=== PATIENT | male | born 1970 | race Caucasian/White ===

== ENCOUNTER 2016-07-13 13:23 | Emergency (ER) | payer OTHER ==
--- NOTE | 2016-07-13 13:31 | EDPHY ---
H & P Stated Complaint: cp/palpitations and dizzyness Time Seen by Provider: 07/13/16 13:31 Source: Patient - Personal History Current Tetanus/Diphtheria Vaccine: Yes - Medical/Surgical History Hx Asthma: No Hx Chronic Respiratory Disease: No Hx Diabetes: No Hx Cardiac Disease: No Hx Renal Disease: No Hx Cirrhosis: No Hx Alcoholism: No Hx HIV/AIDS: No Hx Splenectomy or Spleen Trauma: No Other PMH: palpitaitons/anxiety/ - Social History Smoking Status: Never smoked Constitutional: Initial Vital Signs Temperature (C) 36.7 C 07/13/16 13:27 Heart Rate 63 07/13/16 13:27 Respiratory Rate 18 07/13/16 13:27 Blood Pressure 146/89 H 07/13/16 13:27 O2 Sat (%) 96 07/13/16 13:27 O2 Delivery Mode Room Air Allergies/Adverse Reactions: tape Allergy (Uncoded 07/13/16 13:26) Home Medications: Medication Instructions Recorded Metoprolol Succinate 07/13/16 Sertraline HCl 07/13/16 Synthroid 07/13/16 Medical Decision Making - Diagnostics Imaging Results: Imaging Impressions Orbit X-Ray 07/13/16 00:00 Impression: 1. No metallic orbital foreign body. 2. Query hyperparathyroidism? Message was left for Dr. Greer at 5:27 PM Brain MRI 07/13/16 16:19 Impression: Tiny possible meningioma measuring about 7 mm without compression upon the underlying cerebral parenchyma overlying the posterior frontal lobe in a parasagittal location superiorly on the left. Otherwise, normal MRI of the brain without contrast. Findings discussed with Jose Greer MD at 18:09 hour, 07/13/2016. ED Course/Re-evaluation: CHIEF COMPLAINT: Chest pain, Dizziness HISTORY OF PRESENT ILLNESS: The patient is a 45-year-old male, sent here by his peanut blancher, Dr. Hollingsworth with complaints of chest pain and dizziness. The patient reports a dull, isolated, left sided chest pain that started around 11: 45 a.m. This pain lasted 10-15 minutes. Patient last experienced this chest pain about 4 days ago. He had associated dizziness today, which he states he usually experiences with palpitations. Patient notes he has recently been riding his bike more frequently. He does not usually feel symptoms during exertion. REVIEW OF SYSTEMS: A 10 point review of systems was performed and is negative with the exception of the elements mentioned in the history of present illness. PHYSICAL EXAM: HR, BP, O2 Sat, RR. Temp noted General Appearance: Alert, well hydrated, appropriate, and non-toxic appearing. Head: Atraumatic without scalp tenderness or obvious injury Eyes: Pupils equal, round, reactive to light and accommodation, EOMI, no trauma , no injection. Ears: Clear bilaterally, no perforation, normal landmarks Nose: Atraumatic, no rhinorrhea, clear. Throat: There is no erythema or exudates, no lesions, normal tonsils, mucus membranes moist. Neck: Supple, 2+ carotid upstroke, nontender, no lymphadenopathy. Respiratory: No retractions, no distress, no wheezes, and no accessory muscle use. Lungs are clear to auscultation bilaterally. Cardiovascular: Regular rate and rhythm, no murmurs, rubs, or gallops. Bilateral carotid, radial, dorsalis pedis, and posterior tibial pulses intact. Good capillary refill all extremities. Gastrointestinal: Abdomen is soft, nontender, non-distended, no masses, no rebound, no guarding, no peritoneal signs. Musculoskeletal: Normal active ROM of all extremities, atraumatic. Neurological: Alert, appropriate, and interactive. The patient has normal DTRs and non-focal cranial nerves, motor, sensory, and cerebellar exam. Skin: No rashes, good turgor, no nodules on palpation. Past medical history: Palpitations, Anxiety Past surgical history: Denies Social history: Lives in [place]. DIAGNOSTICS/PROCEDURES/CRITICAL CARE TIME: The 12 lead EKG was interpreted by myself. See hard copy and/or "tracemaster" electronic copy for interpretation: Sinus rhythm, borderline right axis deviation. I discussed CT imaging with the radiologist. See imaging section for full report. DIFFERENTIAL DIAGNOSIS: The differential diagnosis for the patient's chest pain included but was not limited to myocardial ischemia, pulmonary embolus, chest wall pain, pleural inflammation, and pulmonary infectious causes. MEDICAL DECISION MAKING: The patient was sent by Dr. Hollingsworth, Cardiology. Patient has documented runs of 2000 PVCs per hour with sustained runs of VT that he spontaneously comes out of. His ECHO was structurally normal. Patient is currently in sinus rhythm, no ischemia, rate 61. He is now complaining of intermittent chest pain and dizziness. Chest pain comes and goes. Patient seems more concerned with acute dizziness. His dizziness is persistent even with no evidence of rapid rhythm. Lab work is unremarkable. D-dimer and Troponin are normal. Electrolytes are normal. 4:10 p.m.: I spoke to Dr. Hollingsworth, he does not think his symptoms are cardiac related. I will refer the patient to a neurologist. 4:15 p.m.: I spoke to Dr. Duran, Neurology. He will see the patient and would like noncontrast head CT. CT shows 7mm meningioma that is not touching the brain, thus it is not causing his neurological symptoms. I discussed this finding with the patient. He will followup with the neurologist. - Data Points Laboratory Results: Laboratory Results 07/13/16 13:45 07/13/16 13:45 07/13/16 07/13/16 07/13/16 13:45 13:45 13:45 WBC 8.71 10^3/uL 10^3/uL (3.80-9.50) RBC 5.63 10^6/uL 10^6/uL (4.40-6.38) Hgb 15.2 g/dL g/dL (13.7-17.5) Hct 45.7 % % (40.0-51.0) MCV 81.2 fL L fL (81.5-99.8) MCH 27.0 pg L pg (27.9-34.1) MCHC 33.3 g/dL g/dL (32.4-36.7) RDW 13.9 % % (11.5-15.2) Plt Count 228 10^3/uL 10^3/uL (150-400) MPV 10.2 fL fL (8.7-11.7) Neut % (Auto) 57.9 % % (39.3-74.2) Lymph % (Auto) 29.5 % % (15.0-45.0) [place] % (Auto) 7.7 % % (4.5-13.0) Eos % (Auto) 3.1 % % (0.6-7.6) Baso % (Auto) 0.7 % % (0.3-1.7) Nucleat RBC Rel Count 0.0 % % (0.0-0.2) Absolute Neuts (auto) 5.04 10^3/uL 10^3/uL (1.70-6.50) Absolute Lymphs (auto) 2.57 10^3/uL 10^3/uL (1.00-3.00) Absolute Monos (auto) 0.67 10^3/uL 10^3/uL (0.30-0.80) Absolute Eos (auto) 0.27 10^3/uL 10^3/uL (0.03-0.40) Absolute Basos (auto) 0.06 10^3/uL 10^3/uL (0.02-0.10) Absolute Nucleated RBC 0.00 10^3/uL 10^3/uL (0-0.01) Immature Gran % 1.1 % % (0.0-1.1) Immature Gran # 0.10 10^3/uL 10^3/uL (0.00-0.10) D-Dimer < 0.27 ug/mLFEU ug/mLFEU (0.00-0.50) Sodium 138 mEq/L mEq/L (134-144) Potassium 4.5 mEq/L mEq/L (3.5-5.2) Chloride 103 mEq/L mEq/L (97-110) Carbon Dioxide 24 mEq/l mEq/l (22-31) Anion Gap 11 mEq/L mEq/L (8-16) BUN 14 mg/dL mg/dL (7-23) Creatinine 0.9 mg/dL mg/dL (0.7-1.3) Estimated GFR > 60 Glucose 86 mg/dL mg/dL (70-100) Calcium 9.6 mg/dL mg/dL (8.5-10.4) Magnesium 2.0 mg/dL mg/dL (1.6-2.3) Troponin I < 0.012 ng/mL ng/mL (0-0.034) NT-Pro-B Natriuret Pep 123 pg/mL pg/mL (0-125) Departure - Departure Disposition: Home, Routine, Self-Care Clinical Impression: Dizziness Chest pain Qualifiers: Chest pain type: unspecified Qualified Code(s): R07.9 - Chest pain, unspecified Condition: Good Instructions: Dizziness (ED) Additional Instructions: You have been referred to a radiologist below. Please call the neurologist tomorrow to arrange a followup appointment. Referrals: [facility] [Other] - As per Instructions Alan Duran DO [Doctor of Osteopathy] - As per Instructions (Neurologist) Report Scribed for: Jose Greer Report Scribed by: Kamryn Leblanc Date of Report: 07/13/16 Time of Report: 18:14
--- NOTE | 2016-07-13 13:36 | CPEKG ---
Heart Rate: 61 RR Interval: 984 P-R Interval: 200 QRSD Interval: 100 QT Interval: 408 QTC Interval: 411 P [place]: 20 QRS [place]: 93 T Wave [place]: 12 EKG Severity - OTHERWISE NORMAL ECG - EKG Impression: SINUS RHYTHM EKG Impression: BORDERLINE RIGHT AXIS DEVIATION Electronically Signed By: Jose Greer 13-Jul-2016 21:03:46
[2016-07-13 15:12] LABS: % IMMATURE GRANULYOCYTES 1.1 % (0.0-1.1); ADD DIFF? NO; ADD MORPH? NO; ADD SCAN? NO; ATYPICAL LYMPHOCYTE FLAG 10 (0-99); FRAGMENT RBC FLAG 0 (0-99); HEMATOCRIT 45.7 % (40.0-51.0); HEMOGLOBIN 15.2 g/dL (13.7-17.5); LEFT SHIFT FLG 10 (0-99); LIPEMIA HEMOLYSIS FLAG 80 (0-99); MEAN CELL HEMOGLOBIN CONCENTR. 33.3 g/dL (32.4-36.7); MEAN CELL VOLUME 81.2 fL (81.5-99.8); MEAN PLATELET VOLUME 10.2 fL (8.7-11.7); PLATELET CLUMPS FLAG 0 (0-99); PLATELET COUNT 228 10^3/uL (150-400); RED BLOOD CELL COUNT 5.63 10^6/uL (4.40-6.38); RED CELL DISTRIBUTION WIDTH 13.9 % (11.5-15.2)
[2016-07-13 15:15] LABS: ANION GAP 11 mEq/L (8-16); CALCIUM 9.6 mg/dL (8.5-10.4); CARBON DIOXIDE 24 mEq/l (22-31); CHLORIDE 103 mEq/L (97-110); CREATININE 0.9 mg/dL (0.7-1.3); GLOMERULAR FILTRATION RATE > 60; GLUCOSE 86 mg/dL (70-100); POTASSIUM 4.5 mEq/L (3.5-5.2); SODIUM 138 mEq/L (134-144)
[2016-07-13 15:27] LABS: TROPONIN I < 0.012 ng/mL (0-0.034)
[2016-07-13 18:49] VITALS: BP 133/86; PULSE 65; RESP 19; TEMP 98.6; O2SAT 93
== END 2016-07-13 19:06 | disposition home or self-care (01) ==
DX: R42 Dizziness and giddiness (principal); R07.9 Chest pain, unspecified

== ENCOUNTER → 2016-11-24 | Outpatient (CLI) | payer OTHER ==
[~2016-11-24] MED LIST: GADOBUTROL 10 ML VIAL IVP ONE
== END ==
LOC: FIMAGING 08:17
PROVIDERS: ATTEND Internal Medicine Cardiovascular Disease
DX: R00.2 Palpitations (principal); R42 Dizziness and giddiness
CPT/HCPCS: A9585

== ENCOUNTER 2017-01-26 11:39 | Inpatient (IN) | payer OTHER ==
[2017-01-26] MEDS ORDERED: ACETAMINOPHEN 325 MG TAB PO PRN (13:11)
[2017-01-26 14:18] LABS: % IMMATURE GRANULYOCYTES 0.5 % (0.0-1.1); ABSOLUTE IMMATURE GRANULOCYTES 0.04 10^3/uL (0.00-0.10); ADD DIFF? NO; ADD MORPH? NO; ADD SCAN? NO; ATYPICAL LYMPHOCYTE FLAG 0 (0-99); FRAGMENT RBC FLAG 0 (0-99); HEMATOCRIT 45.1 % (40.0-51.0); HEMOGLOBIN 15.3 g/dL (13.7-17.5); LEFT SHIFT FLG 0 (0-99); LIPEMIA HEMOLYSIS FLAG 90 (0-99); MEAN CELL HEMOGLOBIN 26.9 pg (27.9-34.1); MEAN CELL HEMOGLOBIN CONCENTR. 33.9 g/dL (32.4-36.7); MEAN CELL VOLUME 79.4 fL (81.5-99.8); MEAN PLATELET VOLUME 9.4 fL (8.7-11.7); PLATELET CLUMPS FLAG 0 (0-99); PLATELET COUNT 227 10^3/uL (150-400); RED BLOOD CELL COUNT 5.68 10^6/uL (4.40-6.38); RED CELL DISTRIBUTION WIDTH 13.1 % (11.5-15.2)
--- NOTE | 2017-01-26 14:30 | CPEKG ---
Heart Rate: 81 RR Interval: 741 P-R Interval: 192 QRSD Interval: 100 QT Interval: 384 QTC Interval: 446 P [place]: 21 QRS [place]: 106 T Wave [place]: 12 EKG Severity - OTHERWISE NORMAL ECG - EKG Impression: SINUS RHYTHM EKG Impression: RIGHT AXIS DEVIATION Electronically Signed By: Vicki Whatley 26-Jan-2017 14:31:47
[2017-01-26 14:34] LABS: ANION GAP 14 mEq/L (8-16); CALCIUM 9.4 mg/dL (8.5-10.4); CARBON DIOXIDE 21 mEq/l (22-31); CHLORIDE 107 mEq/L (97-110); CREATININE 0.9 mg/dL (0.7-1.3); GLOMERULAR FILTRATION RATE > 60; GLUCOSE 86 mg/dL (70-100); MAGNESIUM 1.9 mg/dL (1.6-2.3); POTASSIUM 4.3 mEq/L (3.5-5.2); SODIUM 142 mEq/L (134-144)
--- NOTE | 2017-01-26 15:38 | PDCARPN ---
Cardiology Progress Note Chief Complaint: Patient reports ongoing palpitations, does admit that he is nervous about starting antiarrhythmic therapy. Assessment/Plan: Assessment: Please see Dr. Hollingsworth's office note dated 12/17/16 to be used as official history physical. Patient is a 46-year-old male with h/o asthma, hypothyroidism, incomplete RBBB, near-syncope, and NSVT, who is admitted today for sotalol loading. Patient endorses long history of palpitations, which feel like his heart is jumping out of his chest and skipping beats, that have been increasing in frequency over the past few months to the point where he is currently having several episodes of palpitations per day. These episodes often occur with stress or mild exertion, such as climbing stairs, though rarely~ patient experiences palpitations at rest. Patient states that palpitations last for as long as he is exerting himself and generally subside with rest. Associated symptoms sometimes include lightheadedness, near-syncope, and shortness of breath, but these symptoms are not always present. Patient also endorses occasional midline, substernal, non-radiating chest pain lasting for a few seconds preceding or following palpitations. Denies chest pressure, syncope, diaphoresis, PND, recent illness, fever, chills, or cough. Patient recently underwent 30-day holter which revealed occasional PVCs, couplets, triplets, and one run of nonsustained VT for 4 beats. Currently, patient is asymptomatic, denying any current chest pain or palpitations. Patient had been taking metoprolol tartarate 25 mg for palpitations without relief. He held his dose last night and this morning in anticipation of sotalol loading today. Patient reports recent weight gain, which he attributes to his hypothyroidism, which is being managed by Dr. Perry in [place]. Two to three weeks ago, his dose of [place] Thyroid was adjusted. Patient notes no change in frequency of palpitations since that time. ASSESSMENT/PLAN 1) Palpitations with known non-sustained 4 second run of VT: Discontine metaprolol tartarate. Plan is to initiate sotalol therapy today with first dose tonight, pending EKG. Continue to monitor electrolytes and EKG following each dose for a total of 4 doses during this admission. If patient tolerates sotalol without significant EKG or electrolyte abnormalities, plan is to discharge on Tuesday and continue sotalol as a home medication. 2) Hypothyroidism: Patient is being followed by Dr. Perry in [place] for his hypothyroidism. He recently started a new medication 2-3 weeks ago and does not feel that this has had any effect on~ his palpitations. Plan is to repeat TSH today. 3) DVT prophylaxis: Patient is considered low risk. He is ambulating. Abner hose have been ordered. 4) Code status: Patient is a full code. Due to potential arrhythmia with the starting of sotalol for antiarrhythmic comma patient will need to be monitored for the 1st 4 doses, requiring him to be in the hospital for greater than 2 midnight stays. 01/26/17 15:38 Subjective: Reports episodes of palpitations frequently, multiple times a day lasting for very short durations, less than few seconds. Associated symptoms of lightheadedness occasionally. Denies of any chest pressure or pain. Reports no orthopnea PND, near-syncope, or syncopal Reviewed/Discussed With: other (Dr Hollingsworth) Objective: Intake/Output (24 Hrs) 01/25/17 01/26/17 01/27/17 05:59 05:59 05:59 Other: Weight 115.1 kg Result Diagrams: 01/26/17 14:00 01/27/17 04:01 - Physical Exam Constitutional: healthy appearing, no apparent distress, obese Ears, Nose, Mouth, Throat: moist mucous membranes Cardiovascular: regular rate and rhythm, no murmurs, no rubs, pulses symmetric bilat, No jugular vein distention, No carotid bruit Peripheral Pulses: 2+: carotid (R), carotid (L), dorsalis-pedis (R), dorsalis- pedis (L) Respiratory: clear to auscultate bilat, no crackles, no wheezes, No reduced air movement Gastrointestinal: normoactive bowel sounds, no tenderness Skin: no rashes, warm, no edema Neurologic: AAOx3 Psychiatric: cooperative, interactive, following commands, anxious ICD10 Worksheet Patient Problems: Problems Problem Status Onset NSVT (nonsustained ventricular tachycardia) Acute PVC (premature ventricular contraction) Acute - ICD10 Problem Qualifiers (1) PVC (premature ventricular contraction) (2) NSVT (nonsustained ventricular tachycardia)
[2017-01-26] MEDS: SOTALOL HCL 80 MG TAB PO SCH (21:00)
--- NOTE | 2017-01-26 23:08 | CPEKG ---
Heart Rate: 64 RR Interval: 938 P-R Interval: 188 QRSD Interval: 106 QT Interval: 432 QTC Interval: 446 P [place]: 3 QRS [place]: 102 T Wave [place]: 35 EKG Severity - NORMAL ECG - EKG Impression: SINUS RHYTHM Electronically Signed By: Vicki Whatley 27-Jan-2017 06:47:49
[2017-01-27 05:31] LABS: ANION GAP 12 mEq/L (8-16); CALCIUM 9.3 mg/dL (8.5-10.4); CARBON DIOXIDE 24 mEq/l (22-31); CHLORIDE 106 mEq/L (97-110); GLOMERULAR FILTRATION RATE > 60; GLUCOSE 86 mg/dL (70-100); POTASSIUM 4.5 mEq/L (3.5-5.2); SODIUM 142 mEq/L (134-144)
[2017-01-27] MEDS ORDERED: THYROID PORK PO SCH (07:00)
[2017-01-27] MEDS: SOTALOL HCL 80 MG TAB PO SCH ×2 (08:58→21:02)
[2017-01-27 09:03] LABS: T3 (TRIIODOTHYRONINE) TOTAL 1.72 ng/mL (0.970-1.690)
--- NOTE | 2017-01-27 10:54 | PDCARPN ---
Cardiology Progress Note Chief Complaint: Patient reports he has had little sleep last night. Assessment/Plan: Assessment: Please see Dr. Hollingsworth's office note dated 12/17/16 to be used as official history physical. Patient is a 46-year-old male with h/o asthma, hypothyroidism, incomplete RBBB, near-syncope, and NSVT, who is admitted today for sotalol loading. Patient endorses long history of palpitations, which feel like his heart is jumping out of his chest and skipping beats, that have been increasing in frequency over the past few months to the point where he is currently having several episodes of palpitations per day. These episodes often occur with stress or mild exertion, such as climbing stairs, though rarely~ patient experiences palpitations at rest. Patient states that palpitations last for as long as he is exerting himself and generally subside with rest. Associated symptoms sometimes include lightheadedness, near-syncope, and shortness of breath, but these symptoms are not always present. Patient also endorses occasional midline, substernal, non-radiating chest pain lasting for a few seconds preceding or following palpitations. Denies chest pressure, syncope, diaphoresis, PND, recent illness, fever, chills, or cough. Patient recently underwent 30-day holter which revealed occasional PVCs, couplets, triplets, and one run of nonsustained VT for 4 beats. Currently, patient is asymptomatic, denying any current chest pain or palpitations. Patient had been taking metoprolol tartarate 25 mg for palpitations without relief. He held his dose last night and this morning in anticipation of sotalol loading today. Patient reports recent weight gain, which he attributes to his hypothyroidism, which is being managed by Dr. Perry in [place]. Two to three weeks ago, his dose of [place] Thyroid was adjusted. Patient notes no change in frequency of palpitations since that time. This morning, patient denies chest pain, chest pressure, palpitations, or shortness of breath today. Patient has not had any palpitations since admission , but he notes that he spent most of the time in his room resting and generally does not have palpitations at rest. Patient states that he feels no different than he did yesterday prior to the sotalol. Telemetry since admission yesterday reveals sinus rhythm with occasional PVCs and one couplet noted. No other malignant arrhythmias noted. ASSESSMENT/PLAN 1) Palpitations with known non-sustained 4 second run of VT: Patient tolerated inital dose of sotalol well. QTc two hour post-dose yesterday evening was 446. No electrolyte abnormalities. Plan is to continue with second dose of sotalol this morning. Continue to monitor electrolytes and EKG following each dose for a total of 4 doses during this admission. If patient tolerates sotalol without significant EKG or electrolyte abnormalities, plan is to discharge on Tuesday and continue sotalol as a home medication. 2) Hypothyroidism: Patient is being followed by his PCP, Dr. Perry in [place] , for his hypothyroidism. He states that his [place] Thyroid dose was recently increased to 150 mg 2-3 weeks ago. Reports no change in palpitations since that time. TSH yesterday was low (0.221). This morning Free T4 was normal (0.76) and total T3 was high (1.720). Held [place] Thyroid this morning. Plan is to consult Dr. Perry to determine whether to adjust [place] Thyroid dose. Left message with Dr. Perry's office this morning and was told I would hear back by this afternoon. 3) DVT prophylaxis: Patient is considered low risk. He is ambulating. Abner hose ordered yesterday. 4) Code status: Full Code Due to potential arrhythmia with the starting of sotalol for antiarrhythmic comma patient will need to be monitored for the 1st 4 doses, requiring him to be in the hospital for greater than 2 midnight stays. 01/27/17 10:51 Subjective: Off he denies of any chest pressure, pain, orthopnea, PND, edema lightheadedness near-syncope, or syncopal. Reviewed/Discussed With: other (Dr Hollingsworth, Call out to PCP Miguelina Medrano NP) Objective: Vital Signs (8 Hrs) Temp Pulse Resp BP Pulse Ox 01/27/17 08:58 68 124/77 H 01/27/17 08:00 36.7 C 70 11 L 124/72 H 90 L 01/27/17 05:56 36.8 C 65 16 118/70 92 Intake/Output (24 Hrs) 01/26/17 01/27/17 01/28/17 05:59 05:59 05:59 Intake Total 600 Balance 600 Intake: Oral (ml) 600 Other: Weight 115.1 kg Number of Voids Toilet 1 Result Diagrams: 01/26/17 14:00 01/27/17 04:01 - Physical Exam Constitutional: WDWN, no apparent distress, obese Eyes: EOMI Ears, Nose, Mouth, Throat: moist mucous membranes Cardiovascular: regular rate and rhythm, no murmurs, no rubs, no gallops, No jugular vein distention Peripheral Pulses: 2+: carotid (R), carotid (L) Respiratory: clear to auscultate bilat, no crackles, no wheezes Gastrointestinal: normoactive bowel sounds Skin: no rashes, warm, no edema Neurologic: AAOx3 Psychiatric: cooperative, interactive, following commands ICD10 Worksheet Patient Problems: Problems Problem Status Onset PVC (premature ventricular contraction) Acute NSVT (nonsustained ventricular tachycardia) Acute - ICD10 Problem Qualifiers (1) PVC (premature ventricular contraction) (2) NSVT (nonsustained ventricular tachycardia)
--- NOTE | 2017-01-27 11:28 | CPEKG ---
Heart Rate: 66 RR Interval: 909 P-R Interval: 208 QRSD Interval: 100 QT Interval: 428 QTC Interval: 449 P [place]: -7 QRS [place]: 118 T Wave [place]: 38 EKG Severity - OTHERWISE NORMAL ECG - EKG Impression: SINUS RHYTHM EKG Impression: RIGHT AXIS DEVIATION Electronically Signed By: Vicki Whatley 27-Jan-2017 18:58:15
--- NOTE | 2017-01-27 11:30 | ASMTCASEMG ---
Living Arrangements What is your living Answers: Alone arrangement? Who do you live with? Type Of Residence What kind of residence do Answers: Apartment you live in? Discharge Plan Comments Coordination Status Comments Notes: Pt is a 46 y/o man admitted for sotalol. Anticipates that pt will d/c independent when medically stable. No therapies ordered at this time. CM available for changes. Plan: Independent Date Signed: 01/27/2017 11:29 AM Electronically Signed By:ARIELLA Kent
--- NOTE | 2017-01-27 23:23 | CPEKG ---
Heart Rate: 64 RR Interval: 938 P-R Interval: 192 QRSD Interval: 104 QT Interval: 436 QTC Interval: 450 P [place]: 17 QRS [place]: 96 T Wave [place]: 38 EKG Severity - BORDERLINE ECG - EKG Impression: SINUS RHYTHM EKG Impression: CONSIDER RIGHT VENTRICULAR HYPERTROPHY Electronically Signed By: Magali Smith 28-Jan-2017 06:15:07
[2017-01-28 05:39] LABS: ANION GAP 11 mEq/L (8-16); CALCIUM 9.2 mg/dL (8.5-10.4); CARBON DIOXIDE 27 mEq/l (22-31); CHLORIDE 103 mEq/L (97-110); CREATININE 1.1 mg/dL (0.7-1.3); GLOMERULAR FILTRATION RATE > 60; GLUCOSE 85 mg/dL (70-100); POTASSIUM 4.3 mEq/L (3.5-5.2); SODIUM 141 mEq/L (134-144)
[2017-01-28] MEDS: SOTALOL HCL 80 MG TAB PO SCH (08:41)
[2017-01-28 08:44] VITALS: BP 131/89; PULSE 72
[2017-01-28 08:47] VITALS: RESP 17; TEMP 97.8; O2SAT 91
--- NOTE | 2017-01-28 09:53 | ASMTCMCOM ---
CM Note CM Note Notes: Patient medically cleared for discharge. No needs identified. Cm available should other needs arise. Date Signed: 01/28/2017 09:53 AM Electronically Signed By:Yany Rose RN
[2017-01-28] MEDS ORDERED: THYROID 60 MG TAB PO SCH (10:00)
--- NOTE | 2017-01-28 11:13 | CPEKG ---
Heart Rate: 65 RR Interval: 923 P-R Interval: 188 QRSD Interval: 102 QT Interval: 432 QTC Interval: 450 P [place]: -6 QRS [place]: 123 T Wave [place]: 34 EKG Severity - ABNORMAL ECG - EKG Impression: SINUS RHYTHM EKG Impression: RIGHT AXIS DEVIATION EKG Impression: INFERIOR INFARCT, AGE INDETERMINATE Electronically Signed By: Vicki Whatley 28-Jan-2017 13:39:44
--- NOTE | 2017-01-28 15:38 | ASDISCHSUM ---
Discharge Information Plan Status:Home with No Needs Medically Cleared to Leave:01/27/2017 Discharge Date:01/28/2017 12:31 PM CM D/C Disposition:Home, Routine, Self-Care ADT D/C Disposition:Home, Routine, Self-Care Projected Discharge Date:01/28/2017 12:31 PM Transportation at D/C:Family Discharge Delay Reason: Follow-Up Date:01/28/2017 12:31 PM Discharge Slot: Final Diagnosis: Placement Information Patient Contact Information Contact Name:YAO Relationship:Father Address: Work Phone: City: [facility] Phone: [facility]/[employer] Code: Email: Financial Information Financial Class:[employer] Primary Plan Desc:[facility] OPEN ACC [facility] Primary Plan Number:[id number] Secondary Plan Desc: Secondary Plan Number: Assessment Information [facility] Initial CM Assessment Living Arrangements What is your living Answers: Alone arrangement? Who do you live with? Type Of Residence What kind of residence do Answers: Apartment you live in? Discharge Plan Comments Coordination Status Comments Notes: Pt is a 46 y/o man admitted for sotalol. Anticipates that pt will d/c independent when medically stable. No therapies ordered at this time. CM available for changes. Plan: Independent Date Signed: 01/27/2017 11:29 AM Electronically Signed By:ARIELLA Kent [facility] CM Progress Note CM Note CM Note Notes: Patient medically cleared for discharge. No needs identified. Cm available should other needs arise. Date Signed: 01/28/2017 09:53 AM Electronically Signed By:Yany Rsoe RN LACE LACE Length of stay for Answers: 1 day current admission Acuity / Level of Care Answers: No. Comorbidities - select Answers: Cerebrovascular disease all that apply Emergency dept visits in Answers: 1 last 6 months Score: 3 Date Signed: 01/28/2017 10:59 AM Electronically Signed By:Jessica Vanegas RN Intervention Information
--- NOTE | 2017-01-28 16:12 | GDS ---
[f rep st] DISCHARGE SUMMARY ADMISSION DIAGNOSIS: 1. Nonsustained frequent premature ventricular contractions. 2. History of nonsustained ventricular tachycardia. 3. Hypothyroidism. 4. Asthma. 5. Incomplete right bundle branch block. DISCHARGE DIAGNOSIS: 1. History of frequent premature ventricular contractions. 2. History of nonsustained ventricular tachycardia. 3. Status post antiarrhythmic loading of sotalol. 4. Asthma. 5. Hypothyroidism. 6. Complete right bundle branch block. PROCEDURES PERFORMED DURING HOSPITALIZATION: Serial electrocardiograms post sotalol dosing, and cont inuous cardiac monitoring. BRIEF HISTORY: Please see history and physical: Briefly, Mr. Castillo is a 46-year-old male. He has b een having frequent palpitations with reported episodes of lightheadedness. From Holter monitoring i n the past, he has been noted to have frequent PVCs and episodes of nonsustained ventricular tachycar derrick. He had been attempted on beta blockage therapy in the past, with little or no success. He had seen Dr. Hollingsworth, and felt that attempt at sotalol antiarrhythmic loading with sotalol would be his best option, at the time. HOSPITAL COURSE: Patient was admitted to the hospital. There, he had initial laboratory studies draw n with electrocardiogram, and placed on continuous cardiac monitoring. During his hospital course, harry jenkins has been given 4 doses of sotalol, each with a 2-hour post dose electrocardiogram, which all of the m have shown QTc within normal limits. On continuous cardiac monitoring through his hospitalization, he has been noted to have occasional premature ventricular contraction, but has had no other maligna nt arrhythmias or pauses noted. He has been up and walking the unit without any difficulties. It cobian d been noted on admission that he had a decreased TSH level of 0.221, and a total T3 of 1.720. His P CP was notified, and adjustments to his thyroid medications were done. PHYSICAL EXAMINATION: GENERAL APPEARANCE: Medium built, mildly obese, male. He is alert and oriented to person, place, time, and situation. Appears to be under no acute distress. CURRENT VITAL SIGNS: Blood pressure of 131/89, heart rate of 72, respirations 17, saturating 90% on room air . Temperature at 36.6 degrees Celsius. HEENT: Head is normocephalic. Lips and tongue are pink and moist with no signs of cyanosis. Conjunctivae pink. NECK: Trachea is midline. +2 carotid pulses bilateral. No auscultated bruits. No jugular vein distention. RESPIRATORY: Lungs clear to auscult ation. No rhonchi, rales or wheezes. No accessory muscle use, no intercostal muscle retraction note d. CARDIAC: Regular rate, regular rhythm, S1, S2. No S3, S4, gallops rubs or murmurs noted. ABDOM EN: Soft, nontender, bowel sounds x4 quadrants. No organomegaly. No palpable masses. SKIN: Gruver, warm, dry, no cyanosis, no clubbing, no peripheral edema. VASCULAR: +2 carotids bilateral, bilater al +2 radials bilateral, +1 dorsal pedal and posterior tibial pulses bilateral. STUDIES: Laboratory studies drawn today show sodium of 141, potassium 4.3, chloride 103, CO2 27, BUN 22, creatinine 1.1, glucose 85, calcium 9.2, magnesium of 2.0. As mentioned above, on admission, TSH was noted at 0.221, free T4 was 0.76 and total T3 was 1.720. Electrocardiogram last evening showing sinus rhythm, normal axis, no significant ST or T-wave abnorma lities, QTc is 450 milliseconds. Continuous cardiac monitoring, as mentioned above. DISCHARGE DISPOSITION: Patient will be discharged home in stable condition. DISCHARGE MEDICATIONS: Please see discharge medication reconciliation sheet. Note that patient will be sent home on sotalol at 120 mg p.o. twice daily. His thyroid had been decreased to 90 mg p.o. da laquita. DISCHARGE INSTRUCTIONS: Discharge instructions went over with the patient including potential side e ffects of medications. It was also discussed with him his most recent thyroid medication changes. He has been told per the request of his PCP to follow up with her in the next month. At the time of cleve walker, patient verbalizes understanding of all instructions and has no questions or concerns. He h as been told if any problems come up postdischarge, he is to call our office or return to the [facility]. Total time spent on discharge greater than 30 minutes. /[id number]/MODL
== END 2017-01-28 12:31 | disposition home or self-care (01) | DRG 309 ==
LOC: F2W 12:51
PROVIDERS: ADMIT Internal Medicine Cardiovascular Disease; ATTEND Internal Medicine Cardiovascular Disease
PROC: 3E033RZ Introduction of Antiarrhythmic into Peripheral Vein, Percutaneous Approach (ICD-10-PCS; principal; 2017-01-26)
DX: I49.3 Ventricular premature depolarization (principal); I47.2 Ventricular tachycardia; R42 Dizziness and giddiness; I45.19 Other right bundle-branch block; J45.909 Unspecified asthma, uncomplicated; E03.9 Hypothyroidism, unspecified
CPT/HCPCS: 84480-90